=== PATIENT | male | born 1970 | race Caucasian/White ===

== ENCOUNTER 2024-08-28 14:33 | Emergency (ER) | payer BC ==
[2024-08-28] MEDS: Tetracaine HCl/PF 0.5% 4 ML Bottle EYERT ONE (14:58)
[2024-08-28] MEDS: Fluorescein 1 MG Ophth Strip EYERT ONE (15:11)
== END 2024-08-28 16:10 | disposition home or self-care (01) ==
LOC: LB.ED 14:33
DX: B00.52 Herpesviral keratitis (principal); E66.9 Obesity, unspecified; Z87.891 Personal history of nicotine dependence; Z68.34 Body mass index [BMI] 34.0-34.9, adult
CPT/HCPCS: 99283